=== PATIENT | male | born 1935 | race Caucasian/White ===

== ENCOUNTER → 2018-08-28 | Outpatient (CLI) | payer OTHER ==
[2018-08-28 14:29] VITALS: BP 142/71; PULSE 71; RESP 16
--- NOTE | 2018-08-28 14:35 | P.CONS ---
History of Present Illness - Reason for Consult Consult date: 08/28/18 - Chief Complaint Lower and mid back pain - History of Present Illness This is an 82-year-old gentleman with a chronic history of lower and mid back pain. The pain is mostly localized in the above-mentioned areas with no radiation to the lower extremities. 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 He denies any bowel or bladder dysfunction. He lives in assisted living house. He came in today with his [id number]. The patient denies any nocturnal pain. The patient has a history of abdominal aortic aneurysm size 5.6 cm in diameter. The computed tomography scan also showed a solitary right lower pole renal mass and compression deformity of the T12 vertebral body. Medications and Allergies Home Medications Medication Instructions Recorded Confirmed Type Atorvastatin [Lipitor] 80 mg PO HS 08/28/18 08/28/18 History Docusate Sodium [Dok] 200 mg PO BID 08/28/18 08/28/18 History Lisinopril [Zestril] 5 mg PO DAILY 08/28/18 08/28/18 History Sertraline HCl [Zoloft] 50 mg PO DAILY 08/28/18 08/28/18 History amLODIPine BESYLATE 5 mg PO DAILY 08/28/18 08/28/18 History levETIRAcetam [levETIRAcetam ER] 500 mg PO 08/28/18 History Allergies Allergy/AdvReac Type Severity Reaction Status Date / Time No Known Allergies Allergy Verified 08/28/18 13:47 Physical Exam Vitals: Intake and Output 08/27/18 08/28/18 08/28/18 22:59 06:59 14:59 Other: Weight 72.575 kg - Constitutional General appearance: obese - Respiratory Respiratory: bilateral: CTA - Cardiovascular Rhythm: regular - Integumentary Integumentary: decreased turgor - Neurologic Neuro exam of the lower extremities showed decreased but symmetrical knee reflexes and absent ankle reflexes. Decreased knee flexion and extension to 4 out of 5 and normal ankle flexion and extension and decreased hip flexion 4 out of 5 bilaterally. He has tenderness in the lumbar and lower thoracic paravertebral musculature. He has moderate degree of kyphosis. - Musculoskeletal Musculoskeletal: generalized weakness - Psychiatric Psychiatric: A&O x's 3 Assessment and Plan Plan: This is an 82-year-old gentleman with what seems to be lumbar spondylosis without myelopathy and lumbar degenerative disc disease. He also has compression deformity of T12. The patient denies taking any analgesics at home. He takes small dose of aspirin every day He has a history of stroke, abdominal aortic aneurysm, and right kidney mass. The patient goes to the [facility] for these problems. He also has severe obstructive sleep apnea. The patient lives in an assisted living house. I spoke with the patient about trying a diagnostic medial branch block on the lumbar area to see if this would help his pain and if it does help his pain then we can do RFA in the future. For now we can use some Tylenol for his pain.
== END | disposition home or self-care (01) ==
LOC: PNWHC3 13:30
PROVIDERS: ATTEND Anesthesiology
DX: G89.29 Other chronic pain (principal); M54.5 Low back pain; M51.36 Other intervertebral disc degeneration, lumbar region; M47.816 Spondylosis without myelopathy or radiculopathy, lumbar region; G47.33 Obstructive sleep apnea (adult) (pediatric); G95.29 Other cord compression; Z86.73 Personal history of transient ischemic attack (TIA), and cerebral infarction without residual deficits; M40.209 Unspecified kyphosis, site unspecified; N28.89 Other specified disorders of kidney and ureter; Z86.79 Personal history of other diseases of the circulatory system; Z79.899 Other long term (current) drug therapy; Z79.82 Long term (current) use of aspirin
CPT/HCPCS: 99211

== ENCOUNTER 2018-10-27 09:14 | Day surgery (SDC) | payer OTHER ==
[2018-10-24 13:39] VITALS: BMI 25.5
[2018-10-27 09:33] VITALS: TEMP 96.8
--- NOTE | 2018-10-27 09:51 | P.PCN ---
Date of Procedure: 10/27/18 Description of Procedure: Surgeon: Gabriel Juan MD. Procedure: lumbar Medial Branch Block at L4/5, and L5/S1 NO sedation The patient was seen and examined in the PO. Procedure risks and benefits were fully reviewed with the patient. The patient understands this is a diagnostic if local only is used, as will be the case today. The goal of the procedure is to inject medication onto the medial branch or small nerves that innervate the facet joints. In this way, we can hopefully identify which of these joints, if any, may be contributing to their pain. Informed consent for procedure was obtained. The patient was taken into the office fluoroscopy procedure room and placed prone on the table. A pillow was placed under the abdomen to reduce lumbar lordosis. Vital signs were closely monitored during the procedure. The skin over the area was prepped with Betadine X 3 and draped in usual sterile manner. Sterile technique was observed throughout procedure. Under biplanar fluoroscopic guidance, the target injection area of the L4, L5 and sacral ala were targeted. A 25 gauge 31/2 inch spinal needle was then placed at the most medial and superior aspect of the transverse process near the "eye of the Oz dog". Aspiration for blood was negative. 1 cc of 0.5% marcaine was injected into the targeted areas separately. [place] were withdrawn intact. No complications were noted during the procedure. The patient tolerated the procedure well. The patient was placed in supine position and transferred to the recovery area for observation and remained stable until discharged home. Home discharge instructions were given to the patient by the staff. The patient will schedule a follow up as directed.
[2018-10-27 10:41] VITALS: BP 152/71; PULSE 69; RESP 18
--- NOTE | 2018-10-27 11:43 | FL ---
EXAMINATION TYPE: FL guided pain mgmt statistic DATE OF EXAM: 10/27/2018 HISTORY: Flouroscopy time 5 seconds of fluoroscopy provided. IMPRESSION: 1. Fluoroscopy time.
== END 2018-10-27 10:43 | disposition home or self-care (01) ==
LOC: ORPAIN 09:14
PROVIDERS: ATTEND Hospitalist
DX: M47.816 Spondylosis without myelopathy or radiculopathy, lumbar region (principal); Z88.8 Allergy status to other drugs, medicaments and biological substances
CPT/HCPCS: 64493; 64494; J1030; 64495

== ENCOUNTER 2019-03-05 06:16 | Day surgery (SDC) | payer OTHER ==
[2019-03-05 06:48] VITALS: RESP 18; TEMP 97.2
[2019-03-05] MEDS ORDERED: LACTATED RINGERS 1,000 ML IV SCH (07:01)
--- NOTE | 2019-03-05 07:25 | P.PCN ---
Date of Procedure: 03/05/19 Procedure(s) Performed: PREOPERATIVE DIAGNOSIS : 1- Lumbar spondylosis with Facet Arthropathy without myelopathy . 2- Lumber degenerative disc disease POSTOPERATIVE DIAGNOSIS: 1- Lumbar spondylosis with Facet Arthropathy without myelopathy . 2- Lumber degenerative disc disease PROCEDURE: Diagnostic bilateral L3 , L4 , and L5 medial branch block under fluoroscopy guidance(fluoroscopy images available in the radiology Department ) (To block the facet joint at L4 -5 , and L5-S1 ) ANESTHESIA: Local with Ropivacain 0.5 % only ,no IV sedation. EBL: Minimal COMPLICATION: None. IV FLUIDS: 100 mL of normal saline. PROCEDURE INDICATION: Chronic low back pain secondary to Facet arthropathy unresponsive to conservative treatment. PROCEDURE DESCRIPTION: the patient was seen and identified in the preop holding area , risks and benefits and possible complications of the procedure and alternative were discussed with the patient, and the patient agreed to proceed with the procedure and signed the consent IV was started and vital signs monitored during the procedure and fluoroscopy was used to maximize the benefit and accuracy of the needle placement, and sedation was given to decrease patient anxiety, patient was taken to the procedure room and placed in prone position vital signs monitored in the back prepped with chlorhexidine X3 then under strict sterile technique using a right oblique fluoroscopy ,the junction of the transverse process and the superior articulating process of the right L3 , L4, and L5 vertebra which corresponding to the fluoroscopy image of the eye of the Oz dog on the block side for the medial branches and subsequently , after local infiltration of skin and subcu tissuies with Ropivacaine 0.5 % , one mL at each level ,then 25-gauge Quincke-type needles , 3 needle was used , each one of them placed at the junction of the base of the transverse process and the superior articular process at the appropriate level, and the needle was advanced until the periosteum contacted, needle placement confirmed with AP oblique and lateral view and after appropriate needle placement confirmed, and after negative aspiration for heme and CSF and there was no paresthesia 1-1/2 mL of Ropivacaine 0.5% used , then half mL injected at each level after negative aspiration the needle subsequently removed and the same procedure repeated for the left side at left side at L3, L4 and L5 levels. At the end of the procedure and the needles removed and a bandage applied after the skin was cleaned the cleaning solution patient taken to recovery room in stable condition and monitors in the recovery room for 20-30 minutes and discharged home in stable condition after discharge criteria met and patient will follow up with the pain clinic in 2-4 weeks
--- NOTE | 2019-03-05 07:42 | FL ---
Fluoroscopy HISTORY: Pain 12 seconds fluoroscopy time supplied to the referring clinician. 4 intraoperative C-arm images docum ent the procedure. See dictated report from anesthesia.
[2019-03-05 07:45] VITALS: BP 148/80; PULSE 72
== END 2019-03-05 07:59 | disposition home or self-care (01) ==
LOC: ORPAIN 06:16
PROVIDERS: ATTEND Specialist
DX: G89.29 Other chronic pain (principal); M47.816 Spondylosis without myelopathy or radiculopathy, lumbar region; I10 Essential (primary) hypertension; Z88.6 Allergy status to analgesic agent
CPT/HCPCS: 99152